=== PATIENT | male | born 2005 | race Caucasian/White ===

== ENCOUNTER 2024-01-12 19:28 | Emergency (ER) | payer OTHER ==
[~2024-01-12] VITALS: Ht 165.1 cm; Wt 64.8 kg
[2024-01-12] MEDS: AUGMENTIN 875 MG TAB PO ONE (21:18)
[2024-01-12] MEDS ORDERED: AMOX875T2 PO (21:23)
[2024-01-12 21:27] VITALS: BP 130/81; TEMP 97.8; O2SAT 100
== END 2024-01-12 21:30 | disposition home or self-care (01) ==
LOC: M ED 19:28
DX: S81.842A Puncture wound with foreign body, left lower leg, initial encounter (principal); W54.0XXA Bitten by dog, initial encounter; Y92.009 Unspecified place in unspecified non-institutional (private) residence as the place of occurrence of the external cause; Y93.9 Activity, unspecified; Y99.9 Unspecified external cause status; Z79.2 Long term (current) use of antibiotics

== ENCOUNTER 2024-01-16 21:43 | Emergency (ER) | payer OTHER ==
[~2024-01-16] VITALS: Ht 165.1 cm; Wt 85.7 kg
[~2024-01-16 21:43] MED LIST: AMOX875T2 PO
[2024-01-16] MEDS: RABIES VACCINE HUMAN 2.5 INTERNATIONAL UNITS/ML VIAL IM ONE (22:50)
[2024-01-16 23:37] VITALS: BP 137/74; TEMP 98.2; O2SAT 99
== END 2024-01-16 23:52 | disposition home or self-care (01) ==
LOC: M ED 21:43
DX: Z23 Encounter for immunization (principal); Z20.3 Contact with and (suspected) exposure to rabies